=== PATIENT | female | born 1985 | race African-American/Black ===

== ENCOUNTER 2016-07-30 01:31 | Emergency (ER) | payer SELFPAY ==
[~2016-07-30] VITALS: Ht 162.6 cm; Wt 75.5 kg
[2016-07-30 01:43] VITALS: Ht 162.6 cm; Wt 75.5 kg
[2016-07-30] MEDS ORDERED: IBUPROFEN 600 MG TAB PO ONE (02:00)
--- NOTE | 2016-07-30 02:18 | ERD ---
ER Documentation Chief Complaint Date/Time DATE: 07/30/16 TIME: 02:16 Chief Complaint fell from 2 step stairs around 1830. c/o pain/swelling left ankle HPI 31-year-old female states that she was on her front porch, stopped and had an inversion injury and is complaining of diffuse left-sided ankle pain and swelling. Pain is achy, moderate, worse with movement and pain with weightbearing. She has no weakness, no paresthesias. ROS All systems reviewed and are negative except as per history of present illness. Medications Home Meds Active Scripts Hydrocodone/Acetaminophen ([place] 5-325 Tablet) 1 Each Tablet, 1 TAB PO Q6H Y for PAIN, #7 TAB Prov:ADRIEL KEYS PA-C 07/30/16 Ibuprofen* (Motrin*) 600 Mg Tab, 600 MG PO Q6, #30 TAB Prov:ADRIEL KEYS PA-C 07/30/16 Reported Medications [None] No Conflict Check 02/23/12 Allergies Allergies: Coded Allergies: No Known Drug Allergy (Verified Allergy, Mild, 07/30/16) PMhx/Soc History of Surgery: No Anesthesia Reaction: No Hx Neurological Disorder: No Hx Respiratory Disorders: No Hx Cardiac Disorders: No Hx Psychiatric Problems: No Hx Miscellaneous Medical Probl: No Hx Alcohol Use: No Hx Substance Use: No Hx Tobacco Use: No Physical Exam Vitals Vital Signs Date Time Temp Pulse Resp B/P Pulse Ox O2 Delivery O2 Flow Rate FiO2 07/30/16 01:43 98.2 120 20 134/68 98 Physical Exam General: Well-developed, well-nourished. The patient appears in no acute distress. HEENT: Head is normocephalic, atraumatic. No scleral icterus. Neck: Supple. Nontender. Lungs: Clear to auscultation. Normal air movement. Heart: Regular rate and rhythm. S1 and S2 are normal. No murmurs, gallops, or rubs. Abdomen: Nondistended. Extremities: Diffuse left-sided lateral ankle swelling. Achilles is intact. She is able to partially flex and extend the ankle however limited due to pain. Pulses 2+. Neurologic: Alert and oriented 3. No focal deficits. Normal speech and gait. Skin: Normal turgor. No rash or lesions. Results 24 hrs Current Medications Medications (Trade) Dose Ordered Sig/Michael Route PRN Reason Start Time Stop Time Status Last Admin Dose Admin Ibuprofen (Motrin) 600 mg ONCE ONCE PO 07/30/16 02:00 07/30/16 02:01 DC 07/30/16 02:16 Acetaminophen/ Hydrocodone Bitart ([place] (10/325)) 1 tab ONCE ONCE PO 07/30/16 02:30 07/30/16 02:31 DC 07/30/16 02:16 Procedures/MDM ED course: Patient was given ibuprofen for pain, and [place] for pain. Patient's left ankle was splinted in a air splint, she was given crutches. Splint Assessment: Neurovascularly intact post splint placement with good fit. Medical decision making: This is a 31-year-old female comes in left lateral ankle pain after an inversion injury tonight, consistent with a ankle sprain. There is a left lateral ankle sprain, without evidence of fracture, dislocation , or tendon rupture. She was given a splint, crutches and pain medication. If no improvement in a week she was asked to follow-up with an orthopedist. Departure Diagnosis: Primary Impression: Ankle injury Condition: ADRIEL Anthony PA-C Jul 30, 2016 02:18
[2016-07-30] MEDS ORDERED: HYDROCODONE/APAP (10/325) TAB PO ONE (02:30)
--- NOTE | 2016-07-30 02:34 | RADRPT ---
PROCEDURE: X-ray left ankle CLINICAL INDICATION: Left ankle trauma with pain. Reference marker is directed towards the latera l malleolus. TECHNIQUE: 3 views left ankle COMPARISON: None FINDINGS: Mild soft tissue swelling over lateral malleolus. No acute fracture or dislocation. The soft tissu es are otherwise unremarkable. IMPRESSION: No acute fracture. RPTAT: [facility] Physician Elizabeth Date Time Electronically viewed and signed by Rehana Cool Physician on 07/30/2016 02:33 RS/
[2016-07-30] MEDS ORDERED: HYDR-906 PO (02:36)
[2016-07-30] MEDS ORDERED: IBUP-1542 PO (02:36)
[2016-07-30 02:42] VITALS: BP 120/82; PULSE 82; RESP 20; TEMP 98.6
== END 2016-07-30 02:42 | disposition home or self-care (01) ==
LOC: FTE 01:31
DX: S99.912A Unspecified injury of left ankle, initial encounter (principal); W10.9XXA Fall (on) (from) unspecified stairs and steps, initial encounter; Y92.9 Unspecified place or not applicable
CPT/HCPCS: 73610

== ENCOUNTER 2017-11-24 10:20 | Emergency (ER) | END 2017-11-24 13:03 | disposition home or self-care (01) ==